=== PATIENT | female | born 1970 | race Caucasian/White ===

== ENCOUNTER → 2016-12-02 | Outpatient (CLI) | payer BC | END | disposition home or self-care (01) | LOC: LABWHC1 13:08 | PROVIDERS: ATTEND Internal Medicine Endocrinology, Diabetes & Metabolism | DX: E03.8 Other specified hypothyroidism (principal); L68.0 Hirsutism | CPT/HCPCS: 36415; 82627; 84402; 84403; 84439; 84443 ==

== ENCOUNTER → 2017-02-02 | Outpatient (CLI) | payer BC | LOC: LABWHC1 14:39 | PROVIDERS: ATTEND Internal Medicine Endocrinology, Diabetes & Metabolism | DX: E03.8 Other specified hypothyroidism (principal) | CPT/HCPCS: 36415; 84439; 84443 ==

== ENCOUNTER → 2017-05-24 | Outpatient (CLI) | payer BC | END | disposition home or self-care (01) | LOC: LABWHC1 10:30 | PROVIDERS: ATTEND Internal Medicine Endocrinology, Diabetes & Metabolism | DX: E03.8 Other specified hypothyroidism (principal) | CPT/HCPCS: 36415; 84439; 84443 ==

== ENCOUNTER → 2017-08-08 | Outpatient (CLI) | payer BC ==
--- NOTE | 2017-08-09 11:56 | MM ---
Reason for exam: screening (asymptomatic). Last mammogram was performed 1 year and 1 month ago. Physical Findings: Nurse did not find any significant physical abnormalities on exam. MG Screening Mammo w CAD Bilateral CC and MLO view(s) were taken. Prior study comparison: July 11, 2016, bilateral MG screening mammo w CAD. June 03, 2015, bilateral MG screening mammo w CAD. There are scattered fibroglandular densities. There is no discrete abnormality. ASSESSMENT: Negative, BI-RAD 1 RECOMMENDATION: Routine screening mammogram of both breasts in 1 year.
== END | disposition home or self-care (01) ==
LOC: RADMAMWWP 13:44
PROVIDERS: ATTEND Obstetrics & Gynecology
DX: Z12.31 Encounter for screening mammogram for malignant neoplasm of breast (principal)

== ENCOUNTER → 2018-08-21 | Outpatient (CLI) | payer BC ==
--- NOTE | 2018-08-24 08:46 | MM ---
Reason for exam: screening (asymptomatic). Last mammogram was performed 1 year ago. Physical Findings: A clinical breast exam by your physician is recommended on an annual basis and results should be correlated with mammographic findings. MG Screening Mammo w CAD Bilateral CC and MLO view(s) were taken. Prior study comparison: August 08, 2017, bilateral MG screening mammo w CAD. July 11, 2016, bilateral MG screening mammo w CAD. There are scattered fibroglandular densities. Focal asymmetry right MLO view middle position, a change from prior. This finding is changed when compared with previous exams. ASSESSMENT: Incomplete: need additional imaging evaluation, BI-RAD 0 RECOMMENDATION: Special view mammogram of the right breast. If lesion persists on supplemental views, image directed ultrasound is recommended. [facility] will attempt to contact patient to return for supplemental views and ultrasound if indicated.
== END | disposition home or self-care (01) ==
LOC: RADMAMWWP 12:04
PROVIDERS: ATTEND Obstetrics & Gynecology
DX: Z12.31 Encounter for screening mammogram for malignant neoplasm of breast (principal)
CPT/HCPCS: 77067

== ENCOUNTER → 2018-09-07 | Outpatient (CLI) | payer BC ==
--- NOTE | 2018-09-07 13:59 | MM ---
Reason for exam: additional evaluation requested from abnormal screening. Last mammogram was performed 1 month ago. Physical Findings: Nurse did not find any significant physical abnormalities on exam. MG 3D Work Up W/Cad RT Spot compression CC, spot compression MLO, and LM view(s) were taken of the right breast. Prior study comparison: August 21, 2018, bilateral MG screening mammo w CAD. August 08, 2017, bilateral MG screening mammo w CAD. The breast tissue is heterogeneously dense. This may lower the sensitivity of mammography. Persistent density not evident. There are scattered anterior punctate calcifications in the right breast. There is vague distortion upper MLO view. ASSESSMENT: Probably benign, BI-RAD 3 RECOMMENDATION: Follow-up diagnostic mammogram of the right breast in 6 months.
== END | disposition home or self-care (01) ==
LOC: RADMAMWWP 11:00
PROVIDERS: ATTEND Obstetrics & Gynecology
DX: R92.8 Other abnormal and inconclusive findings on diagnostic imaging of breast (principal)
CPT/HCPCS: 77061; 77065

== ENCOUNTER → 2019-01-31 | Outpatient (CLI) | payer BC ==
[2019-01-31 19:03] LABS: T4, Free (Free Thyroxine) 1.4 ng/dL (0.80-1.80)
== END | disposition home or self-care (01) ==
LOC: LABWHC1 13:21
PROVIDERS: ATTEND Internal Medicine Endocrinology, Diabetes & Metabolism
DX: E03.8 Other specified hypothyroidism (principal)
CPT/HCPCS: 36415; 84439; 84443

== ENCOUNTER → 2019-03-08 | Outpatient (CLI) | payer BC ==
--- NOTE | 2019-03-11 08:27 | MM ---
Reason for exam: follow-up at short interval from prior study. Last mammogram was performed 6 months ago. Physical Findings: Nurse did not find any significant physical abnormalities on exam. MG 3D Diag Mammo W/Cad RT CC, MLO, and XCCL view(s) were taken of the right breast. Prior study comparison: September 07, 2018, right breast MG 3d work up w/cad RT. August 21, 2018, bilateral MG screening mammo w CAD. There are scattered fibroglandular densities. The previous questioned asymmetric density does not persist. These results were verbally communicated with the patient and result sheet given to the patient on 03/08/19. ASSESSMENT: Negative, BI-RAD 1 RECOMMENDATION: Return to routine screening mammogram schedule for both breasts. Back on schedule for August 2019.
== END | disposition home or self-care (01) ==
LOC: RADMAMWWP 12:56
PROVIDERS: ATTEND Obstetrics & Gynecology
DX: R92.8 Other abnormal and inconclusive findings on diagnostic imaging of breast (principal)
CPT/HCPCS: 77061; 77065

== ENCOUNTER → 2019-09-02 | Outpatient (CLI) | payer BC ==
[2019-09-02 11:44] LABS: Basophils % (A) 0 %; Eosinophils # (A) 0.2 k/uL (0-0.7); Eosinophils % (A) 3 %; HCT 41.1 % (34.0-46.0); HGB 13.9 gm/dL (11.4-16.0); Lymphocytes # (A) 2.5 k/uL (1.0-4.8); Lymphocytes % (A) 30 %; MCH 31.4 pg (25.0-35.0); MCHC 33.8 g/dL (31.0-37.0); MCV 92.9 fL (80.0-100.0); Mean Platelet Volume 6.9; Monocytes # (A) 0.6 k/uL (0-1.0); Monocytes % (A) 7 %; Neutrophils # (A) 4.8 k/uL (1.3-7.7); Neutrophils % (A) 58 %; Platelet Count 298 k/uL (150-450); RBC 4.43 m/uL (3.80-5.40); RDW 13.1 % (11.5-15.5); WBC 8.3 k/uL (3.8-10.6)
[2019-09-02 17:14] LABS: Albumin 4.3 g/dL (3.80-4.90); Albumin/Globulin Ratio 1.95 (1.60-3.17); Anion Gap 5.9 mmol/L (4.00-12.00); BUN/Creat Ratio 15.56 Ratio (12.00-20.00); Calcium 9.3 mg/dL (8.7-10.3); Carbon Dioxide 29.1 mmol/L (21.6-31.8); Chol/HDL Ratio 3.65; Globulin 2.2 g/dL (1.6-3.3); LDL Cholesterol,Calculated 90.6 mg/dL (0.0-131.0); Non-African American GFR(CKD) 75.1 (60.0-200.0); Potassium 4.2 mmol/L (3.5-5.5); Total Bilirubin 0.4 mg/dL (0.3-1.2); Total Protein 6.5 g/dL (6.2-8.2); VLDL Calculation 23.4 mg/dL (5.00-40.00)
[2019-09-02 17:22] LABS: T4, Free (Free Thyroxine) 1.6 ng/dL (0.80-1.80)
== END | disposition home or self-care (01) ==
LOC: LABWHC1 10:34
PROVIDERS: ATTEND Internal Medicine
DX: Z00.00 Encounter for general adult medical examination without abnormal findings (principal)
CPT/HCPCS: 36415; 80053; 80061; 82306; 84439; 84443; 85025

== ENCOUNTER → 2019-09-09 | Outpatient (CLI) | payer BC ==
--- NOTE | 2019-09-09 12:41 | XR ---
EXAMINATION TYPE: XR knee complete RT DATE OF EXAM: 09/09/2019 CLINICAL HISTORY: Chronic right knee pain TECHNIQUE: Three views of the right knee are obtained. COMPARISON: None. FINDINGS: There is no acute fracture/dislocation evident in right knee. The tri-compartment joint s paces appear aligned. There is medial compartment joint space narrowing and tricompartmental osteophy marlen. The overlying soft tissue appears unremarkable. IMPRESSION: There is no acute fracture or dislocation in the right knee. Moderate tricompartmental a rthropathy greatest at the medial compartment.
== END | disposition home or self-care (01) ==
LOC: RADXRWHC 11:19
PROVIDERS: ATTEND Internal Medicine
DX: M17.11 Unilateral primary osteoarthritis, right knee (principal)

== ENCOUNTER → 2019-09-09 | Outpatient (CLI) | payer BC ==
--- NOTE | 2019-09-09 13:50 | MM ---
Reason for exam: screening (asymptomatic). Last mammogram was performed 6 months ago. Physical Findings: A clinical breast exam by your physician is recommended on an annual basis and results should be correlated with mammographic findings. MG Screening Mammo w CAD Bilateral CC and MLO view(s) were taken. Prior study comparison: March 08, 2019, right breast MG 3d diag mammo w/cad RT. September 07, 2018, right breast MG 3d work up w/cad RT. The breast tissue is heterogeneously dense. This may lower the sensitivity of mammography. There is no discrete abnormality. ASSESSMENT: Negative, BI-RAD 1 RECOMMENDATION: Routine screening mammogram of both breasts in 1 year.
== END | disposition home or self-care (01) ==
LOC: RADMAMWWP 11:15
PROVIDERS: ATTEND Obstetrics & Gynecology
DX: Z12.31 Encounter for screening mammogram for malignant neoplasm of breast (principal)
CPT/HCPCS: 77067

== ENCOUNTER → 2020-02-04 | Outpatient (CLI) | payer BC ==
[2020-02-04 19:11] LABS: T4, Free (Free Thyroxine) 1.7 ng/dL (0.80-1.80)
== END | disposition home or self-care (01) ==
LOC: LABWHC1 13:28
PROVIDERS: ATTEND Internal Medicine
DX: E03.8 Other specified hypothyroidism (principal)
CPT/HCPCS: 36415; 84439; 84443

== ENCOUNTER → 2020-07-16 | Outpatient (CLI) | payer BC ==
[2020-07-17 01:28] LABS: T4, Free (Free Thyroxine) 1.4 ng/dL (0.80-1.80)
== END | disposition home or self-care (01) ==
LOC: LABWHC1 15:27
PROVIDERS: ATTEND Internal Medicine
DX: E03.8 Other specified hypothyroidism (principal)
CPT/HCPCS: 36415; 84439; 84443

== ENCOUNTER → 2020-09-10 | Outpatient (CLI) | payer BC ==
--- NOTE | 2020-09-14 14:06 | MM ---
Reason for exam: screening (asymptomatic). Last mammogram was performed 1 year ago. History: Patient is postmenopausal. Physical Findings: A clinical breast exam by your physician is recommended on an annual basis and results should be correlated with mammographic findings. MG Screening Mammo w CAD Bilateral CC and MLO view(s) were taken. Prior study comparison: September 09, 2019, bilateral MG screening mammo w CAD. March 08, 2019, right breast MG 3d diag mammo w/cad RT. The breast tissue is heterogeneously dense. This may lower the sensitivity of mammography. There is no discrete abnormality. ASSESSMENT: Negative, BI-RAD 1 RECOMMENDATION: Routine screening mammogram of both breasts in 1 year.
== END | disposition home or self-care (01) ==
LOC: RADMAMWWP 11:21
PROVIDERS: ATTEND Obstetrics & Gynecology
DX: Z12.31 Encounter for screening mammogram for malignant neoplasm of breast (principal)
CPT/HCPCS: 77067

== ENCOUNTER 2020-11-15 19:30 | Emergency (ER) | payer BC ==
[2020-11-15 19:36] VITALS: RESP 18
--- NOTE | 2020-11-15 20:47 | ED ---
Eye Problem HPI - General Chief complaint: Eye Problems Stated complaint: Eye troubles Time Seen by Provider: 11/15/20 19:48 Source: patient Mode of arrival: ambulatory Limitations: no limitations - History of Present Illness Initial comments: 50yo female prsenting for cc of region changes of the left eye. Patient states that today around 1 PM she was at work when she noticed sudden onset of floaters as well as flash of light only in her left eye. She states she struggles with ocular migraines but states that is usually flashes of light in both eyes. Patient denies any onset of headache. Patient states it felt different she denies any pain she denies any vision loss but states there is a squiggly inkblot-like The top and corner of her vision. Patient denies any headaches nausea vomiting diplopia she denies redness or recent head trauma. Patient states she does have myopia and wears contact lenses as well as glasses. Patient states she consulted her deaf teacher who recommended she come to the ER. Patient is no additional complaints she denies any sensation deficits weakness of the upper or lower extremities facial asymmetry speech changes. Patient appears well nontoxic. - Related Data Allergies Allergy/AdvReac Type Severity Reaction Status Date / Time Sulfa (Sulfonamide Allergy Rash/Hives Verified 11/15/20 19:33 Antibiotics) thimerosal Allergy Rash/Hives Verified 11/15/20 19:33 Review of Systems ROS Statement: Those systems with pertinent positive or pertinent negative responses have been documented in the HPI. ROS Other: All systems not noted in ROS Statement are negative. Past Medical History Past Medical History: Hypertension History of Any Multi-Drug Resistant Organisms: None Reported Past Surgical History: No Surgical Hx Reported Smoking Status: Never smoker Past Alcohol Use History: None Reported Past Drug Use History: None Reported General Exam - General Exam Comments Initial Comments: General: The patient is awake and alert, in no distress, and does not appear acutely ill. Eye: +3 mm pupils are equal, round and reactive to light, extra-ocular movements are intact. No nystagmus. There is normal conjunctiva bilaterally. No signs of icterus. No obvious retinal abnormality on limited examination. VF intact to confrontation no gross abnormality. Patient 20/40 in affected eye with corrective lenses. Pressure 21 OU (OD/OS) Ears, nose, mouth and throat: There are moist mucous membranes and no oral lesions. Neck: The neck is supple, there is no tenderness or JVD. Cardiovascular: There is a regular rate and rhythm. No murmur, rub or gallop is appreciated. Respiratory: Lungs are clear to auscultation, respirations are non-labored, breath sounds are equal. No wheezes, stridor, rales, or rhonchi. Musculoskeletal: Normal ROM, no tenderness. Strength 5/5. Sensation intact. Pulses equal bilaterally 2+. Neurological: A&O x 3. CN II-XII intact, There are no obvious motor or sensory deficits. Coordination appears grossly intact. Speech is normal. Skin: Skin is warm and dry and no rashes or lesions are noted. Psychiatric: Cooperative, appropriate mood & affect, normal judgment. Limitations: no limitations Course Vital Signs 11/15/20 11/15/20 19:31 21:09 Temperature 98.4 F 99.4 F Pulse Rate 99 80 Respiratory 18 18 Rate Blood Pressure 161/88 145/88 O2 Sat by Pulse 98 96 Oximetry Medical Decision Making - Medical Decision Making 30-year-old female presenting for new onset of floaters flashes of light and clot-like vision change in the left eye. Overall patient has intact vision. Symptoms concerneing for retinal detachment. No focal neurological deficits. 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 Patient agreeable to this care plan and discharge as is attending Wili Atkins. Disposition Clinical Impression: Vision changes, Floaters Disposition: HOME SELF-CARE Condition: Stable Instructions (If sedation given, give patient instructions): Surgery for Retinal Detachment (DC) Additional Instructions: Please use medication as discussed. Please follow-up with ophthalmology first thing tomorrow morning calling DR. ADAMS office--MUST BE SEEN TOMORROW AND PLEASE EAT NOTHING BY MOUTH AFTER MIDNIGHT. Please return to emergency room if the symptoms increase or worsen or for any other concerns. Is patient prescribed a controlled substance at d/c from ED?: No Referrals: Evette Pelayo MD [Primary Care Provider] - 1-2 days Alcon Cisse MD [STAFF PHYSICIAN] - 1-2 days Time of Disposition: 20:46
[2020-11-15 21:10] VITALS: BP 145/88; PULSE 80; TEMP 99.4
== END 2020-11-15 21:09 | disposition home or self-care (01) ==
LOC: EC 19:30
DX: H43.392 Other vitreous opacities, left eye (principal); H53.8 Other visual disturbances; I10 Essential (primary) hypertension
CPT/HCPCS: 99283

== ENCOUNTER → 2021-03-24 | Outpatient (CLI) | payer BC ==
[2021-03-24 16:48] LABS: Basophils # (A) 0.04 X 10*3/uL (0.00-0.10); Basophils % (A) 0.5 %; Eosinophils # (A) 0.21 X 10*3/uL (0.04-0.35); Eosinophils % (A) 2.7 %; HCT 45.1 % (37.2-46.3); Lymphocytes # (A) 2.58 X 10*3/uL (0.90-5.00); Lymphocytes % (A) 33.6 %; MCH 32.5 pg (27.0-32.0); MCHC 33.3 g/dL (32.0-37.0); MCV 97.6 fL (80.0-97.0); Mean Platelet Volume 9.6 fL (9.5-12.2); Monocytes # (A) 0.63 X 10*3/uL (0.20-1.00); Monocytes % (A) 8.2 %; Neutrophils # (A) 4.19 X 10*3/uL (1.80-7.70); Neutrophils % (A) 54.7 %; Platelet Count 245 X 10*3/uL (140-440); RBC 4.62 X 10*6/uL (4.10-5.20); RDW 12.1 % (11.5-14.5); WBC 7.67 X 10*3/uL (4.50-10.00)
[2021-03-24 23:35] LABS: African American GFR (CKD) 85.8 (60.0-200.0); Albumin 4.4 g/dL (3.80-4.90); Albumin/Globulin Ratio 1.57 (1.60-3.17); Anion Gap 10.8 mmol/L (4.00-12.00); BUN/Creat Ratio 8.89 Ratio (12.00-20.00); Calcium 9.2 mg/dL (8.7-10.3); Carbon Dioxide 27.2 mmol/L (21.6-31.8); Chol/HDL Ratio 3.73; Globulin 2.8 g/dL (1.6-3.3); LDL Cholesterol,Calculated 101.4 mg/dL (0.0-131.0); Potassium 4.3 mmol/L (3.5-5.5); Total Bilirubin 0.5 mg/dL (0.3-1.2); Total Protein 7.2 g/dL (6.2-8.2); VLDL Calculation 18.6 mg/dL (5.00-40.00)
== END | disposition home or self-care (01) ==
LOC: LABWHC1 10:17
PROVIDERS: ATTEND Internal Medicine
DX: Z00.00 Encounter for general adult medical examination without abnormal findings (principal)
CPT/HCPCS: 36415; 80053; 80061; 82306; 85025

== ENCOUNTER → 2021-07-30 | Outpatient (CLI) | payer BC ==
[2021-07-31 02:42] LABS: T4, Free (Free Thyroxine) 1.75 ng/dL (0.800-1.800)
== END | disposition home or self-care (01) ==
LOC: LABWHC1 16:01
PROVIDERS: ATTEND Internal Medicine
DX: E03.8 Other specified hypothyroidism (principal); E55.9 Vitamin D deficiency, unspecified
CPT/HCPCS: 36415; 82306; 84439; 84443

== ENCOUNTER 2021-09-01 07:32 | Day surgery (SDC) | payer BC ==
[2021-08-30 14:23] VITALS: BMI 45.6
[~2021-09-01 07:32] MED LIST: LACTATED RINGERS 1,000 ML IV SCH
[2021-09-01] MEDS ORDERED: LACTATED RINGERS 1,000 ML IV ONE ×2 (08:10)
[2021-09-01] MEDS ORDERED: ONDANSETRON 4 MG/2 ML VIAL ONE ×2 (08:23→08:39)
[2021-09-01] MEDS ORDERED: DEXAMETHASONE SOD PHOSPHATE 4 MG/ML 1 ML VIAL ONE (08:39)
[2021-09-01] MEDS ORDERED: PROPOFOL 10 MG/ML 20 ML VIAL IV ONE (08:39)
--- NOTE | 2021-09-01 08:54 | P.PCN ---
Date of Procedure: 09/01/21 Procedure(s) Performed: BRIEF HISTORY: Patient is a 50-year-old pleasant white female scheduled for an elective colonoscopy as a part of screening for colorectal neoplasia. PROCEDURE PERFORMED: Colonoscopy with snare polypectomy. PREOPERATIVE DIAGNOSIS: Screening for Colon cancer. IV sedation per Anesthesia. PROCEDURE: After informed consent was obtained, the patient, was brought into the endoscopy unit. IV sedation was administered by Anesthesia under continuous monitoring. Digital rectal examination was normal. Initially the Olympus CF-160 flexible video colonoscope was then inserted in the rectum, gradually advanced into the cecum without any difficulty. Careful examination was performed as the scope was gradually being withdrawn. Ileocecal valve and the appendiceal orifice were visualized and appeared normal. Prep was excellent. Mucosa of the cecum, appeared normal. In the ascending colon there were 2 polyps measuring 5 mm in size removed by snare polypectomy. Rest of the ascending colon, transverse colon, descending colon, sigmoid colon, and rectum appeared normal. Retroflexion was performed in the rectum and no lesions were seen. The patient tolerated the procedure well. IMPRESSION: 5 mm 2 ascending colon polyp status post polypectomy Rest of the colon appeared normal RECOMMENDATIONS: Findings of this examination were discussed with the patient as well as a family. She was advised to follow with the biopsy results. If the biopsy results adenoma she can have a repeat colonoscopy in 5 years.
[2021-09-01 09:00] VITALS: RESP 16
[2021-09-01 09:13] VITALS: BP 123/81; PULSE 70
== END 2021-09-01 09:31 | disposition home or self-care (01) ==
LOC: ORWHC2ENDO 07:32
PROVIDERS: ATTEND Internal Medicine Gastroenterology
DX: Z12.11 Encounter for screening for malignant neoplasm of colon (principal); D12.2 Benign neoplasm of ascending colon; I10 Essential (primary) hypertension; Z79.899 Other long term (current) drug therapy; Z88.2 Allergy status to sulfonamides; Z88.8 Allergy status to other drugs, medicaments and biological substances
CPT/HCPCS: 81025; 88305; 45385; J1100; J2405; J2704

== ENCOUNTER → 2021-09-13 | Outpatient (CLI) | payer BC ==
--- NOTE | 2021-09-13 12:45 | MM ---
Reason for exam: screening (asymptomatic). Last mammogram was performed 1 year ago. History: Patient is postmenopausal. Physical Findings: A clinical breast exam by your physician is recommended on an annual basis and results should be correlated with mammographic findings. MG 3D Screening Mammo W/Cad Bilateral CC and MLO view(s) were taken. Prior study comparison: September 10, 2020, bilateral MG screening mammo w CAD. September 09, 2019, bilateral MG screening mammo w CAD. There are scattered fibroglandular densities. There is no discrete abnormality. ASSESSMENT: Negative, BI-RAD 1 RECOMMENDATION: Routine screening mammogram of both breasts in 1 year.
== END | disposition home or self-care (01) ==
LOC: RADMAMWWP 11:24
PROVIDERS: ATTEND Obstetrics & Gynecology
DX: Z12.31 Encounter for screening mammogram for malignant neoplasm of breast (principal); Z78.0 Asymptomatic menopausal state
CPT/HCPCS: 77063; 77067

== ENCOUNTER → 2022-03-04 | Outpatient (CLI) | payer BC ==
[2022-03-04 14:25] LABS: Basophils # (A) 0.04 X 10*3/uL (0.00-0.10); Basophils % (A) 0.6 %; Eosinophils # (A) 0.22 X 10*3/uL (0.04-0.35); Eosinophils % (A) 3.1 %; HGB 14.8 g/dL (12.0-15.0); Immature Grans, Automated 0.1 %; Lymphocytes # (A) 2.79 X 10*3/uL (0.90-5.00); Lymphocytes % (A) 39.2 %; MCH 31.8 pg (27.0-32.0); MCHC 32.9 g/dL (32.0-37.0); MCV 96.6 fL (80.0-97.0); Mean Platelet Volume 9.2 fL (9.5-12.2); Monocytes # (A) 0.64 X 10*3/uL (0.20-1.00); NRBC Per 100 WBC 0 /100 WBCS (0.0-0.0); Neutrophils # (A) 3.42 X 10*3/uL (1.80-7.70); Platelet Count 223 X 10*3/uL (140-440); RBC 4.66 X 10*6/uL (4.10-5.20); RDW 12.3 % (11.5-14.5); WBC 7.12 X 10*3/uL (4.50-10.00)
[2022-03-04 14:52] LABS: ALT 60 U/L (8-44); AST 46 U/L (13-35); African American GFR (CKD) 86.8 (60.0-200.0); Albumin 4.4 g/dL (3.8-4.9); Albumin/Globulin Ratio 1.49 (1.60-3.17); Alkaline Phosphatase 63 U/L (41-126); BUN/Creat Ratio 13.21 Ratio (12.00-20.00); Blood Urea Nitrogen 11.7 mg/dL (9.0-27.0); Calcium 9.6 mg/dL (8.7-10.3); Carbon Dioxide 26.2 mmol/L (20.0-27.5); Chloride 101 mmol/L (96-109); Chol/HDL Ratio 4.51 Ratio; Glucose 125 mg/dL (70-110); LDL Cholesterol,Calculated 121.3 mg/dL (0.0-131.0); Non-African American GFR(CKD) 74.9 (60.0-200.0); Potassium 4.5 mmol/L (3.5-5.5); Sodium 140 mmol/L (135-145); Total Protein 7.3 g/dL (6.2-8.2)
== END | disposition home or self-care (01) ==
LOC: LABWHC1 09:09
PROVIDERS: ATTEND Internal Medicine
DX: Z00.00 Encounter for general adult medical examination without abnormal findings (principal); R73.9 Hyperglycemia, unspecified
CPT/HCPCS: 36415; 80053; 80061; 83036; 85025

== ENCOUNTER → 2022-03-10 | Outpatient (CLI) | payer BC ==
[2022-03-10 23:15] LABS: Estradiol 27.5 pg/mL; Follicle Stimulating Hormone 22.6 mIU/mL
== END | disposition home or self-care (01) ==
LOC: LABWHC1 15:19
PROVIDERS: ATTEND Obstetrics & Gynecology
DX: Z01.818 Encounter for other preprocedural examination (principal); N95.0 Postmenopausal bleeding; R94.31 Abnormal electrocardiogram [ECG] [EKG]
CPT/HCPCS: 36415; 82670; 83001; 93005

== ENCOUNTER 2022-03-22 06:21 | Day surgery (SDC) | payer BC ==
[2022-03-17 13:54] VITALS: BMI 44.9
--- NOTE | 2022-03-21 07:55 | P.HPOB ---
History of Present Illness H&P Date: 03/21/22 Chief Complaint: Postmenopausal bleeding. This patient is a pleasant 51 yr female who presented to me with complaints of ~20 days of vaginal bleeding after not having a menses for about 1 year. Ultrasound showed endometrial thickening to 17.5 cm. Hormone levels were e quivocal. She now presents for further evaluation with hysteroscopy and D&C. Review of Systems Genitourinary: Reports as per HPI, Reports abnormal vaginal bleeding Menstruation: Reports as per HPI Past Medical History Past Medical History: Asthma, Hypertension, Thyroid Disorder Additional Past Medical History / Comment(s): irregular and heavy menses,prediabetes,post nasal drip History of Any Multi-Drug Resistant Organisms: None Reported Past Surgical History: Cholecystectomy Additional Past Surgical History / Comment(s): sigmoidoscopy,EGD,carpel tunnel, Leep procedures,plantar fasciotomy,d&c Past Anesthesia/Blood Transfusion Reactions: Motion Sickness, Postoperative Nausea & Vomiting (PONV) Past Psychological History: No Psychological Hx Reported Smoking Status: Former smoker Past Alcohol Use History: None Reported Past Drug Use History: None Reported - Past Family History Mother Family Medical History: No Reported History Father Family Medical History: Deep Vein Thrombosis (DVT) Medications and Allergies Home Medications Medication Instructions Recorded Confirmed Type Cetirizine HCl [Zyrtec] 10 mg PO DAILY 03/12/21 03/17/22 History Cholecalciferol [Vitamin D3 (25 125 mcg PO DAILY 03/12/21 03/17/22 History Mcg = 1000 Iu)] Cyclobenzaprine [Flexeril] 10 mg PO HS 03/12/21 03/17/22 History Fluticasone Nasal [place] [Flonase 2 spr EA NOSTRIL DAILY 03/12/21 03/17/22 History Nasal [place]] Levothyroxine Sodium 250 mcg PO QAM 03/12/21 03/17/22 History Montelukast Sodium [Singulair] 10 mg PO DAILY 03/12/21 03/17/22 History Multivit with Calcium,Iron,Min 1 each PO DAILY 03/12/21 03/17/22 History [Women's Multivitamin] Omeprazole [PriLOSEC] 20 mg PO DAILY 03/12/21 03/17/22 History hydroCHLOROthiazide [Hydrodiuril] 25 mg PO DAILY 03/12/21 03/17/22 History Ascorbic Acid [Vitamin C] 500 mg PO DAILY 08/30/21 03/17/22 History Zinc 100 mg PO DAILY 08/30/21 03/17/22 History Allergies Allergy/AdvReac Type Severity Reaction Status Date / Time Sulfa (Sulfonamide Allergy Rash/Hives Verified 03/17/22 13:45 Antibiotics) thimerosal Allergy Rash/Hives Verified 03/17/22 13:45 Exam - OBG Physical Exam Abdomen: bowel sounds normal, no diffuse tenderness, no bruit present, no g uarding noted, no hepatomegaly, no splenomegaly, no mass Vulva: both: normal Vagina: normal moisture, no discharge Cervix: no lesion, no discharge Uterus: normal size, normal contour Results Transvaginal ultrasound shows a retroverted uterus with endometrium 17.5mm. Small fibroid (2.3cm) right fundus. Assessment and Plan Assessment: This is a pleasant 51 yr old female with an episode of postmenopausal bleeding and ultrasound showing thickening of the endometrium. Plan is hysteroscopy with dilation and curretage. I discussed this surgery with her including the risks: infection, bleeding, possible uterine perforation and / or thermal injury. All of her questions have been answered and a written consent obtained. (1) Postmenopausal bleeding Status: Acute Code(s): N95.0 - POSTMENOPAUSAL BLEEDING SNOMED Code(s): 36116731 (2) Endometrial thickening on ultrasound Status: Acute Code(s): R93.89 - ABNORMAL FINDINGS ON DX IMAGING OF OTH BODY STRUCTURES SNOMED Code(s): 512056253
[~2022-03-22 06:21] MED LIST changes: +DEXAMETHASONE SOD PHOSPHATE 4 MG/ML 1 ML VIAL IV ONE; +LIDOCAINE 1% (10MG/ML) FOR IV START INTRADERMA PRN; +ONDANSETRON 4 MG/2 ML VIAL IVP ONE; +Pre Op ABX Message 1 EACH MISC MISCELLANE ONE
[2022-03-22] MEDS ORDERED: HYDROmorphone 0.5 MG/0.5 ML SYRINGE IVP PRN (07:00)
[2022-03-22 07:03] LABS: Glucose,Whole Blood 113 mg/dL (70-110)
[2022-03-22] MEDS ORDERED: SCOPOLAMINE 1 MG/72 HR PATCH TRANSDERM ONE (07:10)
[2022-03-22] MEDS ORDERED: MIDAZOLAM 2 MG/2 ML VIAL IV ONE (07:10)
[2022-03-22] MEDS ORDERED: PROPOFOL 10 MG/ML 20 ML VIAL IV ONE (07:25)
[2022-03-22] MEDS ORDERED: KETOROLAC 30 MG/ML 1 ML VIAL ONE (07:25)
[2022-03-22] MEDS ORDERED: LIDOCAINE 2% INJ 20 MG/ML (2 ML VIAL) ONE (07:25)
--- NOTE | 2022-03-22 07:56 | P.OP ---
Date of Procedure: 03/22/22 Preoperative Diagnosis: Postmenopausal bleeding and thickening of the endometrium on ultrasound Postoperative Diagnosis: Same Procedure(s) Performed: #1: Hysteroscopy. #2: Dilation and curettage Anesthesia: other (LMA) Surgeon: Daniele Daley Estimated Blood Loss (ml): 10 Urine output (ml): 30 Pathology: other (Uterine curettings) Condition: stable Disposition: PACU Indications for Procedure: Please see dictated H&P for intimate details of this patient's admission. In brief summary this is a pleasant 51-year-old multiparous patient who presented to [place] with 20 days of vaginal bleeding after not having a menses for approximately 1 year. Evaluation showed endometrial thickening to 1.8 cm. Hormone levels were equivocal. Patient now presents for hysteroscopy D&C for further evaluation. Patient and I have discussed the surgery and risks and ri sks of infection, bleeding, possible uterine perforation. All the patient's questions are answered and a written consent is obtained. Operative Findings: This patient had a normal-appearing endometrial cavity some proliferative endometrium noted. Uterus was retroverted. Description of Procedure: This patient is taken to the operating room where she is laid in the supine position. She subsequently undergoes general anesthesia without incident. With an adequate level of anesthesia she's placed in dorsal lithotomy position. She has a vaginal perineal prep and drape. Examination under anesthesia shows a retroverted uterus of normal size. The bladder is drained for 30 mL of clear urine. Weighted speculum placed in the posterior vagina. The anterior lip of the cervix was grabbed with an Allis clamp. At this time I sound the uterus to approximately 9 cm retroverted. Gentle dilation is then done of the endocervix to allow the hysteroscope into the uterine cavity. Using saline solution, hysteroscopy is performed and the uterine cavity and endocervix are completely visualized. All does appear normal. There is some definitive type endometrium noted but no evidence of polyps, fibroids or other growths. With this done the hysteroscope was removed. Cervix is dilated more to allow a curette easily and the uterine cavity. A gentle but thorough 4 quadrant curettage is then done. Adequate sampling is noted. This done the procedure is ended. The Allis clamp and weighted speculum removed. All counts are correct 3. Her location. Patient is awakened from anesthesia and taken to the recovery room in satisfactory condition.
[2022-03-22 07:58] VITALS: TEMP 96.8
[2022-03-22 08:07] VITALS: RESP 16
[2022-03-22 09:07] VITALS: BP 112/73; PULSE 69
== END 2022-03-22 09:35 | disposition home or self-care (01) ==
LOC: OR 06:21
PROVIDERS: ATTEND Obstetrics & Gynecology
DX: N95.0 Postmenopausal bleeding (principal); R93.89 Abnormal findings on diagnostic imaging of other specified body structures; Z88.2 Allergy status to sulfonamides; I10 Essential (primary) hypertension; E07.9 Disorder of thyroid, unspecified; E66.01 Morbid (severe) obesity due to excess calories; Z68.41 Body mass index [BMI] 40.0-44.9, adult; Z79.890 Hormone replacement therapy; Z79.899 Other long term (current) drug therapy; Z88.8 Allergy status to other drugs, medicaments and biological substances; Z79.51 Long term (current) use of inhaled steroids; Z87.891 Personal history of nicotine dependence; Z82.49 Family history of ischemic heart disease and other diseases of the circulatory system
CPT/HCPCS: 81025; 88305; 58558; J2250; J1100; J2405; J1885; J2704; J2001

== ENCOUNTER → 2022-08-25 | Outpatient (CLI) | payer BC ==
[2022-08-26 01:24] LABS: African American GFR (CKD) 89.8 (60.0-200.0); Anion Gap 14.3 mmol/L (10.00-18.00); BUN/Creat Ratio 12.88 Ratio (12.00-20.00); Blood Urea Nitrogen 11.1 mg/dL (9.0-27.0); Calcium 9.5 mg/dL (8.7-10.3); Carbon Dioxide 24.2 mmol/L (20.0-27.5); Non-African American GFR(CKD) 77.5 (60.0-200.0); Potassium 4.3 mmol/L (3.5-5.5); T4, Free (Free Thyroxine) 1.7 ng/dL (0.800-1.800)
== END | disposition home or self-care (01) ==
LOC: LABWHC1 15:50
PROVIDERS: ATTEND Internal Medicine
DX: E55.9 Vitamin D deficiency, unspecified (principal); E03.9 Hypothyroidism, unspecified
CPT/HCPCS: 36415; 80048; 82306; 84439; 84443

== ENCOUNTER → 2022-09-14 | Outpatient (CLI) | payer BC ==
--- NOTE | 2022-09-15 18:30 | MM ---
Reason for Exam: Screening (asymptomatic). Last screening mammogram was performed 12 month(s) ago. Patient History: Menarche at age 11. First Full-Term at age 26. Postmenopausal. Risk Values: [place] 5 year model risk: 1.2%. NCI Lifetime model risk: 9.6%. Prior Study Comparison: 09/09/2019 Bilateral Screening Mammogram, [facility]. 09/10/2020 Bilateral Screening Mammogram, [facility]. 09/13/2021 Bilateral Screening Mammogram, [facility]. Tissue Density: There are scattered fibroglandular densities. Findings: Analyzed By CAD. There is no suspicious group of microcalcifications or new suspicious mass in either breast. Overall Assessment: Negative, BI-RAD 1 Management: Screening Mammogram of both breasts in 1 year. 1. Patient should continue monthly self breast exams. 2. A clinical breast exam by your physician is recommended on an annual basis. 3. This exam should not preclude additional follow-up of suspicious palpable abnormalities. Electronically signed and approved by: Geri Malik M.D. Radiologist
== END | disposition home or self-care (01) ==
LOC: RADMAMWWP 14:35
PROVIDERS: ATTEND Obstetrics & Gynecology
DX: Z12.31 Encounter for screening mammogram for malignant neoplasm of breast (principal); Z78.0 Asymptomatic menopausal state
CPT/HCPCS: 77063; 77067

== ENCOUNTER → 2023-04-21 | Outpatient (CLI) | payer OTHER ==
[2023-04-21 15:56] LABS: Basophils # (A) 0.03 X 10*3/uL (0.00-0.10); Basophils % (A) 0.5 %; Eosinophils # (A) 0.17 X 10*3/uL (0.04-0.35); Eosinophils % (A) 3.1 %; HCT 42.5 % (37.2-46.3); HGB 14.6 d/dL (12.0-15.0); Lymphocytes # (A) 2.12 X 10*3/uL (0.90-5.00); Lymphocytes % (A) 38.8 %; MCHC 34.4 d/dL (32.0-37.0); MCV 93.2 FL (80.0-97.0); Monocytes # (A) 0.48 X 10*3/uL (0.20-1.00); Monocytes % (A) 8.8 %; NRBC Per 100 WBC 0 X 10*3/uL (0.00-0.01); Neutrophils # (A) 2.66 X 10*3/uL (1.80-7.70); Neutrophils % (A) 48.6 %; Platelet Count 203 X 10*3/uL (140-440); RBC 4.56 X 10*6/uL (4.10-5.20); RDW 11.9 % (11.5-14.5); WBC 5.47 X 10*3/uL (4.50-10.00)
[2023-04-21 16:21] LABS: Hepatitis A Antibody IgM Nonreactive; Hepatitis B Core IgM Nonreactive; Hepatitis B Surface Antigen Nonreactive; Hepatitis C IgG Antibody Nonreactive
[2023-04-21 16:24] LABS: Chol/HDL Ratio 3.85 Ratio; LDL Cholesterol,Calculated 98.5 mg/dL (0.0-131.0); T4, Free (Free Thyroxine) 1.92 ng/dL (0.80-1.80); VLDL Calculation 17.04 mg/dL (5.00-40.00)
[2023-04-21 16:31] LABS: ALT 56 U/L (8-44); AST 51 U/L (13-35); Albumin 4.6 d/dL (3.8-4.9); Albumin/Globulin Ratio 1.53 Ratio (1.60-3.17); Alkaline Phosphatase 65 U/L (41-126); Blood Urea Nitrogen 19.1 mg/dL (9.0-27.0); Carbon Dioxide 23.8 mmol/L (21.6-31.8); Chloride 103 mmol/L (96-109); Glucose 111 mg/dL (70-110); Potassium 4.2 mmol/L (3.5-5.5); Sodium 141 mmol/L (135-145); Total Bilirubin 0.4 mg/dL (0.3-1.2); Total Protein 7.6 d/dL (6.2-8.2)
== END | disposition home or self-care (01) ==
LOC: LABWHC1 10:14
PROVIDERS: ATTEND Internal Medicine
DX: Z00.00 Encounter for general adult medical examination without abnormal findings (principal); E55.9 Vitamin D deficiency, unspecified; E03.9 Hypothyroidism, unspecified; R74.01 Elevation of levels of liver transaminase levels; R73.02 Impaired glucose tolerance (oral)
CPT/HCPCS: 36415; 80053; 80061; 80074; 82306; 83036; 84439; 84443; 85025

== ENCOUNTER → 2023-09-07 | Outpatient (CLI) | payer OTHER ==
[2023-09-07 15:42] LABS: Blood Urea Nitrogen 11.2 mg/dL (9.0-27.0); Calcium 9.9 mg/dL (8.7-10.3); Carbon Dioxide 24.3 mmol/L (21.6-31.8); Chloride 102 mmol/L (96-109); Glucose 102 mg/dL (70-110); Potassium 4.8 mmol/L (3.5-5.5); Sodium 141 mmol/L (135-145)
== END | disposition home or self-care (01) ==
LOC: LABWHC1 09:55
PROVIDERS: ATTEND Internal Medicine
DX: E03.8 Other specified hypothyroidism (principal); E55.9 Vitamin D deficiency, unspecified
CPT/HCPCS: 36415; 80048; 82306; 84439; 84443

== ENCOUNTER → 2023-09-21 | Outpatient (CLI) | payer OTHER ==
--- NOTE | 2023-09-24 17:09 | MM ---
Reason for Exam: Screening (asymptomatic). Last screening mammogram was performed 12 month(s) ago. Patient History: Menarche at age 11. First Full-Term at age 26. Postmenopausal. Risk Values: [place] 5 year model risk: 1.2%. NCI Lifetime model risk: 9.4%. Prior Study Comparison: 09/10/2020 Bilateral Screening Mammogram, [facility]. 09/13/2021 Bilateral Screening Mammogram, [facility]. 09/14/2022 Bilateral MG 3D screening mammo w/cad, [facility]. Tissue Density: There are scattered fibroglandular densities. Findings: Analyzed By CAD. The pattern is symmetrical and stable. No significant interval changes. There is some stable subsegmental calcifications upper left mediolateral oblique view. No suspicious groups of microcalcifications, spiculated or lobular masses, architectural distortion or other secondary signs of malignancy are mammographically apparent. Overall Assessment: Benign, BI-RAD 2 Management: Screening Mammogram of both breasts in 1 year. A negative mammogram report should not preclude additional follow up of suspicious palpable abnormalities. Patient should continue monthly self breast exam. A clinical breast exam by your physician is recommended on an annual basis and results should be correlated with mammographic findings. Electronically signed and approved by: Henrique Aguayo D.O. Radiologis
== END | disposition home or self-care (01) ==
LOC: RADMAMWWP 16:36
PROVIDERS: ATTEND Obstetrics & Gynecology
DX: Z12.31 Encounter for screening mammogram for malignant neoplasm of breast (principal); Z78.0 Asymptomatic menopausal state
CPT/HCPCS: 77063; 77067

== ENCOUNTER → 2024-04-20 | Outpatient (CLI) | payer OTHER | END | disposition home or self-care (01) | LOC: LABWHC1 09:56 | PROVIDERS: ATTEND Internal Medicine | DX: Z00.00 Encounter for general adult medical examination without abnormal findings (principal); E78.5 Hyperlipidemia, unspecified; R73.02 Impaired glucose tolerance (oral) | CPT/HCPCS: 36415; 80061; 83036; 85025 ==

== ENCOUNTER → 2024-09-13 | Outpatient (CLI) | payer OTHER ==
[2024-09-13 20:15] LABS: T4, Free (Free Thyroxine) 1.55 ng/dL (0.80-1.80)
== END | disposition home or self-care (01) ==
LOC: LABWHC1 12:15
PROVIDERS: ATTEND Internal Medicine
DX: E03.8 Other specified hypothyroidism (principal)
CPT/HCPCS: 36415; 84439; 84443

== ENCOUNTER → 2024-09-23 | Outpatient (CLI) | payer OTHER ==
--- NOTE | 2024-09-23 15:12 | MM ---
Reason for Exam: Screening (asymptomatic). Last screening mammogram was performed 12 month(s) ago. Patient History: Menarche at age 11. First Full-Term at age 26. Postmenopausal. Risk Values: [place] 5 year model risk: 1.3%. NCI Lifetime model risk: 9.3%. Prior Study Comparison: 09/13/2021 Bilateral Screening Mammogram, [facility]. 09/14/2022 Bilateral MG 3D screening mammo w/cad, [facility]. 09/21/2023 Bilateral MG 3D screening mammo w/cad, [facility]. Tissue Density: There are scattered areas of fibroglandular density. Analyzed By CAD. Overall Assessment: Negative, BI-RAD 1 Management: Screening Mammogram of both breasts in 1 year. Electronically signed and approved by: Alcon Damon M.D.
== END | disposition home or self-care (01) ==
LOC: RADMAMWWP 13:19
PROVIDERS: ATTEND Obstetrics & Gynecology
DX: Z12.31 Encounter for screening mammogram for malignant neoplasm of breast (principal); Z78.0 Asymptomatic menopausal state; R92.323 Mammographic fibroglandular density, bilateral breasts
CPT/HCPCS: 77063; 77067

== ENCOUNTER → 2024-12-05 | Outpatient (CLI) | payer OTHER ==
[2024-12-05 14:43] LABS: Basophils # (A) 0.04 X 10*3/uL (0.00-0.10); Basophils % (A) 0.6 %; Eosinophils # (A) 0.22 X 10*3/uL (0.04-0.35); Eosinophils % (A) 3.3 %; HCT 42.1 % (37.2-46.3); HGB 14.4 g/dL (12.0-15.0); Lymphocytes % (A) 34.9 %; MCH 32.2 pg (27.0-32.0); MCHC 34.2 g/dL (32.0-37.0); MCV 94.2 FL (80.0-97.0); Mean Platelet Volume 9.4 FL (9.5-12.2); Monocytes # (A) 0.63 X 10*3/uL (0.20-1.00); Monocytes % (A) 9.6 %; NRBC Per 100 WBC 0 X 10*3/uL (0.00-0.01); Neutrophils # (A) 3.39 X 10*3/uL (1.80-7.70); Neutrophils % (A) 51.4 %; Platelet Count 254 X 10*3/uL (140-440); RBC 4.47 X 10*6/uL (4.10-5.20); RDW 11.7 % (11.5-14.5); WBC 6.59 X 10*3/uL (4.50-10.00)
[2024-12-05 15:11] LABS: ALT 25 U/L (8-44); AST 27 U/L (13-35); Albumin 4.3 g/dL (3.8-4.9); Albumin/Globulin Ratio 1.65 Ratio (1.60-3.17); Alkaline Phosphatase 75 U/L (41-126); BUN/Creat Ratio 18.11 Ratio (12.00-20.00); Blood Urea Nitrogen 16.3 mg/dL (9.0-27.0); Calcium 9.8 mg/dL (8.7-10.3); Carbon Dioxide 28.2 mmol/L (21.6-31.8); Chloride 101 mmol/L (96-109); Chol/HDL Ratio 3.65 Ratio; Globulin 2.6 g/dL (1.6-3.3); Glucose 96 mg/dL (70-110); LDL Cholesterol,Calculated 115.1 mg/dL (0.0-131.0); Potassium 4.7 mmol/L (3.5-5.5); Sodium 141 mmol/L (135-145); Total Bilirubin 0.3 mg/dL (0.3-1.2); Total Protein 6.9 g/dL (6.2-8.2); VLDL Calculation 14.92 mg/dL (5.00-40.00)
== END | disposition home or self-care (01) ==
LOC: LABWHC1 09:14
PROVIDERS: ATTEND Internal Medicine
DX: Z00.00 Encounter for general adult medical examination without abnormal findings (principal); Z11.59 Encounter for screening for other viral diseases; E55.9 Vitamin D deficiency, unspecified; R73.02 Impaired glucose tolerance (oral)
CPT/HCPCS: 36415; 80053; 80061; 82306; 83036; 85025; 86803

== ENCOUNTER → 2025-04-07 | Outpatient (CLI) | payer OTHER ==
[2025-04-07 20:00] LABS: Basophils # (A) 0.07 X 10*3/uL (0.00-0.10); Basophils % (A) 0.9 %; Eosinophils # (A) 0.20 X 10*3/uL (0.04-0.35); Eosinophils % (A) 2.5 %; HCT 41.5 % (37.2-46.3); HGB 14.0 g/dL (12.0-15.0); Immature Grans, Automated 0.20 %; Lymphocytes # (A) 2.90 X 10*3/uL (0.90-5.00); Lymphocytes % (A) 35.8 %; MCH 32.6 pg (27.0-32.0); MCHC 33.7 g/dL (32.0-37.0); MCV 96.7 FL (80.0-97.0); Monocytes # (A) 0.69 X 10*3/uL (0.20-1.00); Monocytes % (A) 8.5 %; NRBC Per 100 WBC 0 X 10*3/uL (0.00-0.01); Neutrophils # (A) 4.22 X 10*3/uL (1.80-7.70); Neutrophils % (A) 52.1 %; Platelet Count 241 X 10*3/uL (140-440); RBC 4.29 X 10*6/uL (4.10-5.20); RDW 12.5 % (11.5-14.5); WBC 8.10 X 10*3/uL (4.50-10.00)
== END | disposition home or self-care (01) ==
LOC: LABWHC1 14:30
PROVIDERS: ATTEND Obstetrics & Gynecology
DX: Z01.818 Encounter for other preprocedural examination (principal); I10 Essential (primary) hypertension; N95.0 Postmenopausal bleeding
CPT/HCPCS: 36415; 85025; 93005